=== PATIENT | female | born 1980 | race Caucasian/White ===

== ENCOUNTER 2019-03-13 13:12 | Emergency (ER) | payer OTHER, MEDICAID ==
[~2019-03-13] VITALS: Ht 170.2 cm; Wt 70.8 kg
--- NOTE | 2019-03-13 13:19 | NUR ---
CAME IN FOR RIGHT FLANK PAIN SINCE YESTERDAY, TO ER BED 9, HOOKED TO MONITOR, CHANGED TO HOSP GOWN, PROVIDED W WARM BLANKET, AWAITING MD CRUZ.,
--- NOTE | 2019-03-13 13:41 | NUR ---
LITO CAZARES AT BEDSIDE
[2019-03-13 13:58] LABS: BASOPHILS # (AUTO) 0.1 /CMM (0.0-0.2); BASOPHILS % (AUTO) 0.6 % (0.0-2.0); EOSINOPHILS % (AUTO) 0.8 % (0.0-6.0); HEMATOCRIT 35 % (33-45); HEMOGLOBIN 11.4 g/dL (11.5-14.8); LYMPHOCYTES # (AUTO) 1.4 /CMM (0.8-4.8); LYMPHOCYTES % (AUTO) 13.3 % (20.0-44.0); MEAN CORPUSCULAR HGB CONC 33 g/dl (31.0-36.0); MEAN CORPUSCULAR VOLUME 91 fL (82-100); MONOCYTES # (AUTO) 0.8 /CMM (0.1-1.30); NEUTROPHILS # (AUTO) 8.5 /CMM (1.8-8.9); NEUTROPHILS % (AUTO) 78.3 % (43.0-81.0); PLATELET COUNT (AUTO) 324 /CMM (150-450); RED BLOOD CELL COUNT(AUTO) 3.85 MIL/uL (4.0-5.2); WHITE BLOOD COUNT (AUTO) 10.8 K/uL (4.3-11.0)
[2019-03-13] MEDS ORDERED: ONDANSETRON HCL/PF 4 MG/2 ML VIAL ONE (13:58)
[2019-03-13] MEDS ORDERED: KETOROLAC TROMETHAMINE INJ 30 MG/ML VIAL IV ONE (14:00)
[2019-03-13] MEDS ORDERED: ONDANSETRON HCL/PF 4 MG/2 ML VIAL IV ONE (14:00)
[2019-03-13] MEDS ORDERED: IV NS 0.9% 1,000 ML BAG IV ONE (14:00)
[2019-03-13 14:03] LABS: APPEARANCE,URINE Clear (CLEAR); BILIRUBIN,URINE Negative (NEGATIVE); BLOOD, URINE Moderate Ery/uL (NEGATIVE); COLOR,URINE Yellow (YELLOW); KETONES,URINE Negative (NEGATIVE); LEUKOCYTE ESTERASE ,URINE Negative (NEGATIVE); NITRITE, URINE Positive (NEGATIVE); PROTEIN,URINE 30 mg/dl (NEGATIVE); UGLUCOSE Negative (NEGATIVE)
[2019-03-13 14:04] LABS: CALCIUM, SERUM 9.2 mg/dL (8.5-10.1); CREATININE 0.8 mg/dL (0.6-1.3); POTASSIUM 3.9 mmol/L (3.5-5.1)
[2019-03-13] MEDS ORDERED: KETOROLAC TROMETHAMINE 15 MG/ML VIAL ONE (14:04)
[2019-03-13 14:07] LABS: BACTERIA,URINE 2+ /HPF (None Seen); RBC,URINE 21-50 /HPF (0-2); SQUAMOUS EPITHELIAL CELL,UR Few /HPF (None Seen)
[2019-03-13 14:10] LABS: ALBUMIN 3.4 g/dL (3.4-5.0); BILIRUBIN,DIRECT 0.1 mg/dL (0.0-0.2); BILIRUBIN,TOTAL 0.2 mg/dL (0.2-1.0); TOTAL PROTEIN, SERUM 7.7 g/dL (6.4-8.2)
[2019-03-13] MEDS ORDERED: CEFTRIAXONE 1 G in IV D5W 50 ML IV SCH (15:00)
[2019-03-13] MEDS ORDERED: CEFTRIAXONE 1GM BAG (ER ONLY) 50 ML IV ONE (15:21)
--- NOTE | 2019-03-13 15:49 | NUR ---
IV removed. Catheter intact and site benign. Pressure and 4x4 applied to site. No bleeding noted.Patient discharged to home in stable condition. Written and verbal after care instructions given. Patient verbalizes understanding of instruction.
[2019-03-13 18:16] VITALS: BP 62/67
== END 2019-03-13 15:49 | disposition home or self-care (01) ==
LOC: ER 13:12
DX: N12 Tubulo-interstitial nephritis, not specified as acute or chronic (principal); F17.200 Nicotine dependence, unspecified, uncomplicated; Z98.890 Other specified postprocedural states
CPT/HCPCS: 36415; 80048; 80076; 81001; 84703; 85025; 87077; 87086; 87186; 96365; 96375; 99283; J0696; J1885; J2405; J7030; 81000-TC; J7060

== ENCOUNTER 2019-05-24 18:13 | Emergency (ER) | payer MEDICAID, OTHER ==
[~2019-05-24] VITALS: Ht 170.2 cm; Wt 72.6 kg
[2019-05-24 19:34] LABS: BASOPHILS # (AUTO) 0.1 /CMM (0.0-0.2); EOSINOPHILS % (AUTO) 2.1 % (0.0-6.0); HEMATOCRIT 36 % (33-45); HEMOGLOBIN 11.7 g/dL (11.5-14.8); LYMPHOCYTES # (AUTO) 2.2 /CMM (0.8-4.8); LYMPHOCYTES % (AUTO) 22.9 % (20.0-44.0); MEAN CORPUSCULAR HGB CONC 33 g/dl (31.0-36.0); MEAN CORPUSCULAR VOLUME 90 fL (82-100); MONOCYTES # (AUTO) 0.6 /CMM (0.1-1.30); MONOCYTES % (AUTO) 5.6 % (2.0-12.0); NEUTROPHILS # (AUTO) 6.7 /CMM (1.8-8.9); NEUTROPHILS % (AUTO) 68.4 % (43.0-81.0); PLATELET COUNT (AUTO) 384 /CMM (150-450); RED BLOOD CELL COUNT(AUTO) 4.01 MIL/uL (4.0-5.2); WHITE BLOOD COUNT (AUTO) 9.8 K/uL (4.3-11.0)
[2019-05-24 19:44] LABS: CALCIUM, SERUM 9.2 mg/dL (8.5-10.1); CARBON DIOXIDE 28 mmol/L (21-32); CHLORIDE 104 mmol/L (98-107); CREATININE 0.7 mg/dL (0.6-1.3); GLUCOSE 86 mg/dL (74-106); POTASSIUM 4.2 mmol/L (3.5-5.1); SODIUM SERUM 140 mmol/L (136-145); UREA NITROGEN, BLOOD 11 mg/dL (7-18)
[2019-05-24] MEDS ORDERED: CT SWABBABLE VALVE TRANS SET 1 EA INFUS.SET MC ONE (20:23)
[2019-05-24] MEDS ORDERED: IOHEXOL-350 100 ML VIAL IV ONE (20:23)
[2019-05-24] MEDS ORDERED: IV NS 0.9% 250 ML IV ONE (20:23)
[2019-05-24] MEDS ORDERED: LORAZEPAM 1 MG TABLET PO ONE (20:30)
[2019-05-24] MEDS ORDERED: LORAZEPAM 0.5 MG TABLET ONE (21:20)
--- NOTE | 2019-05-24 21:39 | NUR ---
PER DR JORDAN REPEAT TROP AT [id number]
--- NOTE | 2019-05-24 23:27 | NUR ---
Patient discharged to home in stable condition. Written and verbal after care instructions given. Patient verbalizes understanding of instruction. IV removed. Catheter intact and site benign. Pressure and 4x4 applied to site. No bleeding noted.
[2019-05-25 00:05] VITALS: BP 125/63
== END 2019-05-24 23:27 | disposition home or self-care (01) ==
LOC: ER 18:14
DX: R07.89 Other chest pain (principal); F15.10 Other stimulant abuse, uncomplicated; F32.9 Major depressive disorder, single episode, unspecified; F17.200 Nicotine dependence, unspecified, uncomplicated; Z98.890 Other specified postprocedural states; Z60.2 Problems related to living alone
CPT/HCPCS: 36415; 71045; 71275; 80048; 84484 ×2; 84702; 85025; 85378; 93005 ×3; 99285; J7050; Q9967

== ENCOUNTER 2020-06-04 09:16 | Emergency (ER) | payer MEDICAID, OTHER ==
[~2020-06-04] VITALS: Ht 167.6 cm; Wt 77.1 kg
[2020-06-04 09:23] VITALS: BP 122/81
--- NOTE | 2020-06-04 09:38 | NUR ---
AT BEDSIDE FOR EVAL.
[2020-06-04 09:51] LABS: BILIRUBIN,URINE Negative (NEGATIVE); COLOR,URINE DARK YELLOW (YELLOW); LEUKOCYTE ESTERASE ,URINE Large (NEGATIVE); NITRITE, URINE Positive (NEGATIVE); PH,URINE 8.5 (5.0-8.0); PROTEIN,URINE 100 mg/dl (NEGATIVE); UGLUCOSE 100 MG/DL mg/dL (NEGATIVE)
[2020-06-04 10:07] LABS: BACTERIA,URINE 3+ /HPF (None Seen); RBC,URINE NONE SEEN /HPF (0-2); SQUAMOUS EPITHELIAL CELL,UR Few /HPF (None Seen); WBC,URINE 51-80 /HPF (0-3)
[2020-06-04] MEDS ORDERED: CEPHALEXIN MONOHYDRATE 500 MG CAPSULE PO ONE ×2 (10:16→10:30)
[2020-06-04] MEDS ORDERED: CEPH500C2 PO (10:17)
[2020-06-04] MEDS ORDERED: PHEN-705 PO (10:17)
--- NOTE | 2020-06-04 10:20 | NUR ---
Patient discharged to home in stable condition. Written and verbal after care instructions given. Patient verbalizes understanding of instruction.
== END 2020-06-04 10:21 | disposition home or self-care (01) ==
LOC: ER 09:20
DX: N39.0 Urinary tract infection, site not specified (principal); F10.10 Alcohol abuse, uncomplicated; F17.200 Nicotine dependence, unspecified, uncomplicated; Y90.9 Presence of alcohol in blood, level not specified; Z98.890 Other specified postprocedural states; Z60.2 Problems related to living alone
CPT/HCPCS: 81001; 84703-TC; 87086-TC; 87186-TC

== ENCOUNTER 2020-10-17 13:58 | Emergency (ER) | payer MEDICAID ==
[~2020-10-17] VITALS: Ht 170.2 cm; Wt 77.1 kg
[~2020-10-17 13:58] MED LIST: CEPH500C2 PO; PHEN-705 PO
--- NOTE | 2020-10-17 14:16 | NUR ---
BIBS FOR C/O GLF IN THE BATHROOM AT 0400,C/O RIGHT SHOULDER PAIN,THINKS IT'S DISLOCATED. RATES PAIN 9/10. WILL CONTINUE TO MONITOR THE PATIENT.
--- NOTE | 2020-10-17 14:42 | NUR ---
40 years old female with right shoulder pain today stated she fell asleep in the bathroom and fall.
[2020-10-17] MEDS ORDERED: HYDROCODONE/APAP 10/325MG TABLET ONE (14:57)
[2020-10-17] MEDS ORDERED: ONDANSETRON 4 MG TAB.RAPDIS ONE (14:58)
[2020-10-17] MEDS ORDERED: ONDANSETRON 4 MG TAB.RAPDIS SL ONE (15:00)
[2020-10-17] MEDS ORDERED: HYDROCODONE/APAP 10/325MG TABLET PO ONE (15:00)
[2020-10-17] MEDS ORDERED: DICL50TA7 PO (16:00)
--- NOTE | 2020-10-17 16:14 | NUR ---
condition stable no shoulder fracture, d/c home with instructions after care reviewed understood, sling applied to right shoulder.
[2020-10-17 16:16] VITALS: BP 130/70
== END 2020-10-17 16:22 | disposition home or self-care (01) ==
LOC: ER 13:58
DX: S43.101A Unspecified dislocation of right acromioclavicular joint, initial encounter (principal); F17.200 Nicotine dependence, unspecified, uncomplicated; Z98.890 Other specified postprocedural states; Z60.2 Problems related to living alone; W19.XXXA Unspecified fall, initial encounter; Y93.89 Activity, other specified; Y92.89 Other specified places as the place of occurrence of the external cause; Y99.8 Other external cause status
CPT/HCPCS: 73030; 99283; Q0162

== ENCOUNTER 2023-04-08 14:54 | Emergency (ER) | payer MEDICAID, OTHER ==
[~2023-04-08] VITALS: Ht 170.2 cm; Wt 76.7 kg
[~2023-04-08 14:54] MED LIST changes: +DICL50TA7 PO
[2023-04-08] MEDS ORDERED: TDAP [DIPH/PERTUSSIS/TET] 0.5 ML VIAL IM ONE ×2 (16:30→16:32)
[2023-04-08] MEDS ORDERED: KETOROLAC TROMETHAMINE 15 MG/ML VIAL IM ONE (16:30)
[2023-04-08 17:11] LABS: PREGNANCY TEST URINE QUAL NEGATIVE (NEGATIVE)
[2023-04-08] MEDS ORDERED: KETOROLAC TROMETHAMINE 15 MG/ML VIAL ONE (17:13)
[2023-04-08] MEDS ORDERED: ACET-2605 PO (17:18)
[2023-04-08] MEDS ORDERED: IBUP-1955 PO (17:18)
[2023-04-08] MEDS ORDERED: AMOX-430 PO (17:18)
[2023-04-08] MEDS ORDERED: AMOX/CLAVULANATE 875 MG TABLET ONE (17:21)
[2023-04-08] MEDS ORDERED: AMOX/CLAVULANATE 875 MG TABLET PO ONE (17:30)
[2023-04-08 17:39] VITALS: BP 122/80; TEMP 98; O2SAT 100
== END 2023-04-08 17:39 | disposition home or self-care (01) ==
LOC: ER 14:57
DX: S61.451A Open bite of right hand, initial encounter (principal); Z60.2 Problems related to living alone; W54.0XXA Bitten by dog, initial encounter; Y93.89 Activity, other specified; Y92.89 Other specified places as the place of occurrence of the external cause; Y99.8 Other external cause status
CPT/HCPCS: 99284; 96372; 90471; 90715; 73130; 84703; J1885

== ENCOUNTER 2024-05-07 02:22 | Emergency (ER) | payer OTHER ==
[~2024-05-07] VITALS: Ht 175.3 cm; Wt 65.8 kg
[~2024-05-07 02:22] MED LIST changes: +ACET-2605 PO; +AMOX-430 PO; +IBUP-1955 PO
[2024-05-07 03:33] VITALS: BP 123/87; TEMP 98.2; O2SAT 99
== END 2024-05-07 03:34 | disposition home or self-care (01) ==
LOC: ER 02:27
DX: S43.402A Unspecified sprain of left shoulder joint, initial encounter (principal); F17.200 Nicotine dependence, unspecified, uncomplicated; Z60.2 Problems related to living alone; W18.30XA Fall on same level, unspecified, initial encounter; Y93.89 Activity, other specified; Y92.89 Other specified places as the place of occurrence of the external cause; Y99.8 Other external cause status
CPT/HCPCS: 73030-TC